=== PATIENT | female | born 1990 | race Caucasian/White ===

== ENCOUNTER 2023-04-26 12:14 | Emergency (ER) | payer BC, SELFPAY ==
--- NOTE | 2023-04-26 13:00 | ED.ARRPALP ---
HPI - Arrhythmia/Palpitations General Chief Complaint: General Medical Stated Complaint: Chest Tightness Elev Heartrate Time Seen by Provider: 04/26/23 15:20 Source: patient and family Mode of arrival: ambulatory Limitations: no limitations History of Present Illness HPI narrative: A 33-year-old female with past medical history significant for anxiety came in for evaluation diffuse anterior chest tightness and heaviness, symptoms has been on and off for the past week no clear aggravating factor or relieving factor, pain is associated with feeling anxious, sometimes gets nausea or vomiting. Patient had history of cardiac ablation when she was younger, patient declined using any drugs or drinking alcohol. Patient had a significant history of anxiety that she has been evaluated and seen by therapist for it. No recent travel, no lower extremity swelling or tenderness. Related Data Allergies Allergy/AdvReac Type Severity Reaction Status Date / Time No Known Allergies Allergy Verified 04/26/23 12:16 Review of Systems Review of Systems: All other systems are reviewed and are negative Constitutional: Reports as per HPI and Reports no additional constitutional complaints Eyes: Reports as per HPI and Reports no additional eye complaints Reports system reviewed and no additional complaints, except as documented Cardiovascular: Reports as per HPI and Reports no additional cardiovascular complaints Respiratory: Reports as per HPI and Reports no additional respiratory complaints Gastrointestinal: Reports as per HPI and Reports no additional gastrointestinal complaints Genitourinary: Reports no additional female genitourinary complaints Musculoskeletal: Reports no additional musculoskeletal complaints Skin/Breast: Reports system reviewed and no additional complaints, except as docu Psychiatric: Reports no additional psychiatric complaints Endocrine: Reports no additional endocrine complaints Hematologic/Lymphatic: Reports no additional hematologic/lymphatic complaints Allergic/Immunologic: Reports no additional allergic/immunologic complaints Reports system reviewed and no additional complaints, except as documented and Reports Abnormal speech present Physical Exam Vital Signs: Vital Signs: Last Vital Signs Temp 99.5 F 04/26/23 13:01 Pulse 80 04/26/23 15:14 Resp 18 04/26/23 15:14 BP 114/73 04/26/23 15:14 Pulse Ox 99 04/26/23 15:14 O2 Del Method Room Air 04/26/23 15:14 BMI result Body Mass Index 21.3 Vital signs have been reviewed and appear to be correct. Blood pressure elevated. Heart rate normal. Respiratory rate normal. Temperature normal. Oxygen saturation normal. Appearance: Alert. Oriented X3. No acute distress. Head: Normal external exam. Normocephalic. Atraumatic. No Jaime signs noted. No raccoon eyes noted Eyes: PERRLA. EOMI. Conjunctiva and sclera normal. Eyelids normal. ENT: TM's Normal. Pharynx normal. Uvula midline. Moist mucous membranes. No trismus noted. No drooling noted. No muffled voice noted. Neck: Normal inspection. Neck supple. FROM. No adenopathy. Thyroid Normal. No meningeal signs. No neck mass noted. CVS: Normal heart rate and rhythm. Heart sound normal. No murmurs noted. Pulses normal throughout. Respiratory: No respiratory distress. Painless inspiration. Breath sounds normal. No wheezes/rales/rhonchi noted. Chest nontender. No accessory muscle usage noted or decreased air movement noted. Abdomen: Soft and nontender. Bowel sounds normal in all 4 quadrants. No distention noted. No organomegaly noted. No visible injury noted. Back: No CVA tenderness. Full range of motion noted. Skin: Skin warm and dry. Normal skin color. Normal skin turgor. No rashes/lesions/lacerations noted. Extremities: No lower extremity edema. Extremities exhibit normal range of motion. Extremities nontender. Neuro: Oriented X 3. Cranial nerve exam: II-XII are grossly intact No motor deficit. No sensory deficit. Reflexes normal. Course Course Course Narrative: This is an RME: Additional HPI, ROS, PE not included below will be deferred to primary provider. Patient is a 33-year-old female who presents emergency department for evaluation of diffuse anterior chest tightness for the past week with progressive worsening, associated nausea, palpitations, and shortness of breath. States in 2010 she had cardiac ablation performed. No OCP past year, no hx DVT/PE/malignancy. Plan: EKG, labs, viral testing, CXR Reevaluation(s) Reevaluation #1: Diffuse nonspecific chest wall pain for 1 week with negative EKG and troponin. D-dimer also is negative. Patient feels better after was given Ativan in the emergency department plan Patient with history of anxiety and been feeling anxious and stressed about her work. Time: 15:34 Medical Decision Making Differential Diagnosis Differential Diagnoses: The differential diagnosis associated with the presentation includes ( ACS, pulmonary embolism, chest wall pain, pleural effusion, pneumothorax, gallbladder disease, gastritis, anxiety, severe electrolyte abnormality, severe anemia.) Admission/Observation Consideration of admission/observation: Escalation of care including admission/observation considered Lab Data MDM Lab Attestation statement: I reviewed the patient's lab results. 04/26/23 13:12 04/26/23 13:12 Labs: Lab Results 04/26/23 04/26/23 Range/Units 13:11 13:12 WBC 5.6 (4.8-10.8) X10*3/uL RBC 4.40 (4.20-5.50) X10*6/uL Hgb 13.8 (12.0-16.0) g/dl Hct 39.4 (37.0-47.0) % MCV 89.5 (80.0-98.0) fL MCH 31.4 (27.0-33.0) pg MCHC 35.0 (31.0-35.0) g/dl RDW 12.4 (11.0-16.0) % Plt Count 332 (160-400) X10*3/uL MPV 9.5 (9.4-12.3) fL Immature Gran % (Auto) 0.2 (0.0-0.4) % Neut % (Auto) 63.3 (45-73) % Lymph % (Auto) 24.4 (20-40) % Hays % (Auto) 8.6 (2-11) % Eos % (Auto) 3.0 (0-4) % Baso % (Auto) 0.5 (0-2) % Lymph # (Auto) 1.4 (1.2-4.9) X10*3/uL Hays # (Auto) 0.5 (0.1-1.2) X10*3/uL Eos # (Auto) 0.2 (0.0-0.4) X10*3/uL Baso # (Auto) 0.0 (0.0-0.2) X10*3/uL Abs Immat Gran (auto) 0.01 (0.00-0.03) X10*3/uL Absolute Neuts (auto) 3.6 (2.0-8.3) x10*3/uL Absolute Nucleated RBC 0.000 (0.0-0.012) X10*3/uL Nucleated RBC % (auto) 0.0 (0.0-0.2) /100WBC PT 11.8 (11.1-13.3) SEC INR 1.0 (0.9-1.1) Sodium 141 (135-145) mmol/L Potassium 3.9 (3.3-5.1) mmol/L Chloride 106 (96-108) mmol/L Carbon Dioxide 25 (22-29) mmol/L Anion Gap 14 (12-20) BUN 14 (9-16) mg/dL Creatinine 0.87 (0.5-1.4) mg/dL Estim Creat Clear Calc 93.9 Estimated GFR > 60 Random Glucose 87 (60-115) mg/dL Calcium 9.0 (8.4-10.2) mg/dL Magnesium 2.4 (1.6-2.6) mg/dL Total Bilirubin 1.0 (0.0-1.0) mg/dL AST 14 (5-31) U/L ALT 10 (0-31) U/L Alkaline Phosphatase 48 (39-117) U/L Troponin I High Sens < 2.7 (<3.5-17.0) ng/L Total Protein 7.7 (6.5-8.0) g/dL Albumin 4.8 (3.5-5.0) g/dL Lipase 29 (8-78) U/L COVID-19 (ROBERT) Negative (Negative) COVID-19 Clin Com See Note Influenza Type A (KHARI) Negative (Negative) Influenza Type B (KHARI) Negative (Negative) Influenza A & B Note See Note Independent Interpretation I performed an independent interpretation of an: EKG ( Normal sinus rhythm at 90 beats per minute with sinus arrhythmia, normal intervals, no ST-T changes, no previous EKG to compare.) and Plain X-Ray ( Chest: No acute intrathoracic pathology.) Radiology Impression Discussion of test interpretation with radiology: I have reviewed the radiologist's reading. Chronic Conditions Patient?s care impacted by: Other ( Chronic anxiety.) Discharge Plan Discharge Clinical Impression: Anxiety, Chest pain of uncertain etiology Patient Disposition: Home, Self-Care Instructions: Anxiety (ED) Referrals: Tori Chakraborty MD [Primary Care Provider] -
[2023-04-26 13:01] VITALS: BP 148/86; PULSE 86; RESP 16; TEMP 37.5; O2SAT 98; BMI 21.3
[2023-04-26 15:14] VITALS: BP 114/73; PULSE 80; RESP 18; O2SAT 99
--- NOTE | 2023-04-26 15:50 | PC.NURSE ---
alert and oriented, respirations even and unlabored. medicated per the MAR, urine sample obtained and sent. patient updated on plan of care and awaiting lab results.
== END 2023-04-26 16:58 | disposition home or self-care (01) ==
PROVIDERS: Emergency Provider Emergency Medicine; PCP Pediatrics
DX: F41.9 Anxiety disorder, unspecified (principal); R07.89 Other chest pain; Z11.52 Encounter for screening for COVID-19
CPT/HCPCS: 71046; 80053; 81003; 83690; 83735; 84484; 85025; 85379; 85610; 87502; 87635; 93005; 99283; 99284